=== PATIENT | female | born 1980 | race Hispanic/Latino ===

== ENCOUNTER 2018-11-19 11:15 | Day surgery (SDC) | payer OTHER ==
--- NOTE | 2018-11-19 12:28 | PDOC.FPROB ---
FMR OB H&P: HPI - History of Present Illness Chief Complaint: anemia, iron infusion History of Present Illness: 38 yo at 20.2 by LMP/10.3wk US here for iron infusion. Patient has chronic history of anemia, requiring 2 units pRBC after D&C 2/2 PPH in 2014 at [facility]. For the past few weeks, patient has been having dizziness regardless of standing or sitting position. Endorses assoc blurry vision. Was sent for blood work on 11/17/18 and found to have H/H of 7.5/23.1, MCV 77.5. Patient is taking PNV and feosol bid which she is compliant with. Endorses FM, denies LOF, vaginal bleeding. Denies NAIK, scotoma, RUQ pain, edema. 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 However, she was unable to go to US appt with [facility] due to transportation issues. Primary Care Physician: Jamey GARCIA FMR OB H&P: Current - Care : 7 Para: [id number] Gestational age: 20.2 Due date: 04/06/19 Dating Criteria: LMP/10.3wk US Course/Complications: symptomatic anemia AMA Grandmultiparity - OB Labs Blood type: A RH: positive HIV: negative RPR: negative HepBsAg: negative Rubella: immune Quad screen: negative Gonorrhea: negative Chlamydia: negative Pap Smear: negative for intraepithelial lesions, HPV negative high risk, 16,18 H&H: 7.5/23.1 Platelets: 192 - First Trimester Ultrasound First trimester: 09/11/18 10.3wks by LMP 9.5wks by US Intramural appearing fibroid 3.46 x 4.3 x 3.76 cm crown rump length: 30.1mm cardiac activity: yes HR: 166 FMR OB H&P: History - Past Medical History PMH: anemia blood transfusion 2015 Hx of depression - OB History OB History: 09/08/03 [address]wks , [facility] [place] 7lbs 6oz F 07/28/[address] [place] 9lbs 0oz M 08/06/09 40wks [facility] 6lbs 7oz F 09/09/[address] [place] 7lbs 0oz M 10/27/[address] [facility] [place] 10/03/15 40wks [facility]TS[facility] 7lb 7oz - [employer] History [employer] History: pap normal 09/15/18 - Surgical History Sx History: none - Social History Social History: denies smoking, EtOH FMR OB H&P: Medications - Current Home Medications: Medication Instructions Recorded Confirmed Type Iron Carb,Gl/FA/B12/C/Docusate 1 tablet PO DAILY #30 tablet 10/29/14 11/19/18 Rx [Ferralet 90] Allergies/Adverse Reactions: Allergies Allergy/AdvReac Type Severity Reaction Status Date / Time No Known Drug Allergies Allergy Verified 11/19/18 12:22 FMR OB H&P: ROS - Review of Systems General: reports: fatigue. denies: fever/chills Eyes: reports: others (blurry vision). denies: scotomas, floaters Cardiovascular: denies: edema Respiratory: denies: shortness of breath Gastrointestinal: denies: abdominal pain, vomiting Genitourinary (Female): denies: dysuria, vaginal discharge, vaginal bleeding Neurologic: reports: weakness, other (dizziness) FMR OB H&P: Vital Signs - Maternal Vital signs: 105/57 HR: 66 Sat: 100% on RA RR: 18 - Heart Tones Baseline: 150 Variability: minimal Acceleration: absent Deceleration: absent FMR OB H&P: Physical Exam - Physical Exam General: NAD, awake, alert and oriented HEENT: conjunctiva clear, no scleral icterus Heart: RRR, normal S1/S2, no murmurs/rubs/gallops General: CTAB, no respiratory distress Abdomen: soft, gravid, non-tender Musculoskeletal: pulses present, FROM in all four extremities Neurological: no focal deficit Psychiatric: intact recent and remote memory, normal mood and affect FMR OB H&P: A/P - Problem List (1) Symptomatic anemia Current Visit: Yes Status: Acute Code(s): D64.9 - ANEMIA, UNSPECIFIED (2) 20 weeks gestation of Current Visit: Yes Status: Acute Code(s): Z3A.20 - 20 WEEKS GESTATION OF (3) High-risk in second trimester Current Visit: Yes Status: Acute Code(s): O09.92 - SUPERVISION OF HIGH RISK , UNS, SECOND TRIMESTER Disposition: Patient here for iron transfusion. Patient's daughter is with her without anyone to watch daughter. Will administer iron transfusion once friend/family member picks up patient. peripheral smear, B12, ferritin, serum electrophoresis. Based on patient's history of Grandmultip and needing MFM consult, but being unable to go 2/2 transport, we will look into getting anatomy scan here vs going to [facility] based on insurance. Discussion: Date/Time: 11/19/18 0806 This H&P was discussed with Dr. Jackson who agree with the above documentation and plan.
[2018-11-19 12:41] VITALS: BMI 33.7
[2018-11-19] MEDS ORDERED: Acetaminophen 500 MG TAB PO PRN (12:46)
[2018-11-19] MEDS ORDERED: Iron Sucrose Complex 500 MG in Sodium Chloride 0.9% 250 ML 250 ML IVPB SCH (13:00)
[2018-11-19] MEDS ORDERED: Sodium Chloride 0.9% 1,000 ML IV SCH (14:00)
[2018-11-19 14:26] LABS: Anisocytosis SLIGHT = 6-15 cells (100X) (0-5/hpf); Band 2 % (5-11); Hemoglobin 8.1 g/dL (12.0-16.0); Lymphocytes 24 % (21-51); MDiff Complete? YES; Mean Corpuscular HGB CONC 32.9 g/dL (32.0-36.0); Mean Corpuscular Hemoglobin 26.7 pg (27.0-31.0); Mean Corpuscular Volume 81.1 fL (78.0-98.0); Mean Platelet Volume 9.2 fL (7.4-10.4); Monocytes 3 % (0-10); Neutrophil 70 % (42-75); Platelet Count 203 thou/uL (130-400); Platelet Morphology Comment Appears Adequate; RBC Distribution Width 14.5 % (11.5-14.5); Red Blood Cell (RBC) Count 3.02 mill/uL (4.20-5.40); White Blood Cell (WBC) Count 6.2 thou/uL (4.8-10.8)
[2018-11-19] MEDS ORDERED: Ferrous Sulfate 325 MG TAB PO SCH (21:00)
[2018-11-20] MEDS ORDERED: Prenatal Vitamin 1 TAB PO SCH (09:00)
[2018-11-20 16:13] LABS: Folate,Hemolysate 428.3 ng/mL (Not Estab.); Hematocrit 22.2 % (34.0-46.6); RBC Folate Test Component 1929 ng/mL (>498)
[2018-11-21 14:19] LABS: A/G Ratio 0.8 (0.7-1.7); Albumin 2.6 g/dL (2.9-4.4); Alpha 1 0.3 g/dL (0.0-0.4); Alpha 2 0.7 g/dL (0.4-1.0); Beta 1.2 g/dL (0.7-1.3); Gamma 1.2 g/dL (0.4-1.8); Globulin, Total 3.4 g/dL (2.2-3.9); M-Spike Not Observed g/dL (Not Observed)
== END 2018-11-19 17:52 | disposition home health service (06) ==
LOC: L&D/OP 11:15
PROVIDERS: ATTEND Family Medicine
DX: O99.012 Anemia complicating pregnancy, second trimester (principal); D64.9 Anemia, unspecified; O09.42 Supervision of pregnancy with grand multiparity, second trimester; Z3A.20 20 weeks gestation of pregnancy
CPT/HCPCS: 36415; 82607; 82747; 84165; 85007; 85014; 85027; 85060; 96361; 96365; 96366; 99284; J1756; J7050

== ENCOUNTER 2019-03-23 09:27 | Day surgery (SDC) | payer OTHER ==
[2019-03-23 10:17] VITALS: BP 129/74; TEMP 99.1; BMI 33.2
--- NOTE | 2019-03-23 10:56 | PDOC.FPROB ---
FMR OB H&P: HPI - History of Present Illness Chief Complaint: ctx Indentification: 39 y/o @ 38w0d by LMP c/w 10.3 wk US History of Present Illness: Patient presents with ctx that started at 2am every 5-10 minutes and regular. They are painful, she rates them as 10/10 severity. She denies LOF, vaginal bleeding. Reports good movement. She is an A1GDM and brought glucose log which is well controlled. Primary Care Physician: Dr. Concepcion - Clinic FMR OB H&P: Current - Care : 7 Para: [id number] Gestational age: 38w0d Due date: 04/06/19 Dating Criteria: LMP, 10.3 wk US - OB Labs Blood type: A RH: positive Antibody Screen: negative HIV: negative RPR: negative HepBsAg: negative Rubella: immune Gonorrhea: negative Chlamydia: negative Pap Smear: NILM 1 hour gtt: 154 3 hour GTT: 79, 208, 198, 173 GBS: unknown FMR OB H&P: History - Past Medical History PMH: Iron deficiency Anemia - OB History OB History: 5 term vaginal deliveries 1 SAB - [employer] History [employer] History: No h/o abnormal pap smears, NILM during this with negative HPV. No hx of STI's - Surgical History Sx History: Denies - Social History Social History: Denies tobacco, EtOH, or drug use - Family History Family History: Grandmother - DM FMR OB H&P: Medications - Current Home Medications: Medication Instructions Recorded Confirmed Type Iron Carb,Gl/FA/B12/C/Docusate 1 tablet PO DAILY #30 tablet 10/29/14 03/23/19 Rx [Ferralet 90] Pnv No.95/Ferrous Fum/Folic AC 1 each PO DAILY 03/23/19 03/23/19 History [ [place]] Allergies/Adverse Reactions: Allergies Allergy/AdvReac Type Severity Reaction Status Date / Time No Known Drug Allergies Allergy Verified 03/23/19 10:18 FMR OB H&P: ROS - Review of Systems General: denies: fever/chills, night sweats, fatigue ENT: denies: nasal congestion, rhinorrhea Cardiovascular: denies: chest pain, edema Respiratory: denies: cough, shortness of breath Gastrointestinal: reports: abdominal pain. denies: nausea, vomiting, diarrhea Genitourinary (Female): reports: contractions. denies: dysuria, hematuria, vaginal bleeding Musculoskeletal: denies: pain, tenderness Neurologic: denies: numbness, weakness Integumentary: denies: itching, rash Breast: denies: pain/tenderness Endocrine: denies: cold intolerance, heat intolerance Psychological: denies: depression, anxiety FMR OB H&P: Vital Signs - Maternal Vital signs: Vital Signs - First Documented Temp Pulse Resp BP Pulse Ox 99.1 F 64 18 129/74 100 03/23/19 09:52 03/23/19 09:52 03/23/19 09:52 03/23/19 09:52 03/23/19 09:52 - Heart Tones Baseline: 140 Variability: moderate Acceleration: present Deceleration: absent Category: category 1 Brushy contractions every: 5 minutes FMR OB H&P: Physical Exam - Physical Exam General: NAD, awake, alert and oriented HEENT: MMM, conjunctiva clear, no scleral icterus, grossly normal vision, grossly normal hearing Neck: supple, no LAD Heart: RRR, normal S1/S2, no murmurs/rubs/gallops, pulses present, no edema General: CTAB, no respiratory distress, good air movement, no rales/rhonchi, no wheezing Abdomen: soft, gravid, non-tender Neurological: cranial nerves II through XII intact, no focal deficit Skin: good tugor, capillary refill <2 seconds Lymphatic: no unusual bruising or bleeding Psychiatric: intact recent and remote memory, good judgement and insight - Pelvic Exam SVE: /-2 Membranes: intact Presentation: cephalic FMR OB H&P: A/P - Problem List (1) Term Current Visit: Yes Status: Acute Code(s): Z34.90 - ENCNTR FOR SUPRVSN OF NORMAL , UNSP, UNSP TRIMESTER Assessment and Plan: Will rule out labor SVE /-2 with ctx q5min -Will monitor and recheck cervix in two hours to assess for cervical change (2) Uterine contractions Current Visit: Yes Status: Acute Code(s): RXD3669 - Assessment and Plan: Plan as above -GBS unknown at this time, will call lab to find out GBS status (3) Anemia affecting in third trimester Current Visit: Yes Status: Acute Code(s): O99.013 - ANEMIA COMPLICATING , THIRD TRIMESTER Assessment and Plan: Patient on iron, will continue (4) White classification A1 gestational diabetes mellitus Current Visit: Yes Status: Acute Code(s): O24.410 - GESTATIONAL DIABETES MELLITUS IN , DIET CONTROLLED Assessment and Plan: Glucose well controlled -if patient admitted for labor then will check a glucose (5) AMA (advanced maternal age) multigravida 35+ Current Visit: Yes Status: Acute Code(s): O09.529 - SUPERVISION OF ELDERLY MULTIGRAVIDA, UNSPECIFIED TRIMESTER Disposition: Monitor on L&D to assess for cervical change Discussion: Date/Time: 03/23/19 1054 This H&P was discussed with Dr. Sullivan who agrees with the above documentation and plan. Signature: Janie Payton MD, PGY-2
--- NOTE | 2019-03-23 12:25 | PDOC.EVN ---
Event Note - Event Note Event Note: Cervical recheck @ 1215 by nurse was unchanged. Cervical dilation at 3. Patient reports contractions q5-6 minutes though they are not very painful. Plan to discharge home. Discussed plan with patient and answered questions. Return precautions and signs of labor discussed with patient.
== END 2019-03-23 13:09 | disposition home or self-care (01) ==
LOC: L&D/OP 09:27
PROVIDERS: ATTEND Obstetrics & Gynecology
DX: O47.1 False labor at or after 37 completed weeks of gestation (principal); O99.013 Anemia complicating pregnancy, third trimester; D50.9 Iron deficiency anemia, unspecified; O24.410 Gestational diabetes mellitus in pregnancy, diet controlled; O09.523 Supervision of elderly multigravida, third trimester; Z3A.38 38 weeks gestation of pregnancy
CPT/HCPCS: 99283